=== PATIENT | female | born 1955 | race Caucasian/White ===

== ENCOUNTER 2023-03-04 11:37 | Outpatient (CLI) | payer MEDICARE, OTHER ==
--- NOTE | 2023-03-04 12:53 | XRAY Report ---
PROCEDURE: Foot 3 View RT INDICATIONS: LACERATION OF RIGHT FOOT TECHNIQUE: 3 views of the foot were acquired. COMPARISON: None. FINDINGS: Bones: No fractures or dislocations. No suspicious bony lesions. Soft tissues: No suspicious soft tissue calcifications or masses. Small laceration on the dorsal m idfoot. IMPRESSION: Small laceration on the dorsal mid foot, without displaced fracture. Reviewed by: Alfa Vega on 03/04/2023 12:52 PM PDT Approved by: Alfa Vega on 03/04/2023 12:52 PM PDT Station ID: [id number]
== END 2023-03-04 23:59 | disposition home or self-care (01) ==
LOC: DI.S 11:37
PROVIDERS: ATTEND Physician Assistant
DX: S91.311A Laceration without foreign body, right foot, initial encounter (principal)